=== PATIENT | female | born 1995 | race Two or more races ===

== ENCOUNTER 2025-02-26 12:07 | Inpatient (IN) | payer MEDICAID, OTHER ==
[~2025-02-26] VITALS: Ht 154.9 cm; Wt 112.4 kg
--- NOTE | 2025-02-26 12:27 | ED.PDOC ---
GI ASSESSMENT HPI Comments 29-year-old female presents with a chief complaint of abdominal pain with current and vaginal bleeding. Patient states that her LMP was January 22, 2025. Patient mentions that she saw her PMD and had a test done and it was positive. Patient mentions that she has been spotting vaginally. Patient denies clots or dark red blood. Patient reports that she took Ibuprofen for the pain, but it did not relieve her pain. Chief Complaint: Vaginal Bleed Time Seen by MD: 12:17 Reviewed Notes: Medications, Allergies Information Source: Patient Mode of Arrival: Ambulatory Timing: Days Duration: Since onset Prehospital treatment: None Quality: Cramping Vomitus: None Stool: Normal Severity: Moderate Recent: None Recent Hx of: Current Pain Location: Suprapubic Associated sign and symptoms: Abdominal Pain Past Medical History PAST MEDICAL HISTORY: Denies Surgical History: Denies all surgeries LOADER TECHNICIAN History: Denies all LOADER TECHNICIAN Hx Family History Family History: Reviewed,noncontributory to illness Social History Smoker: Cigarettes Alcohol: Denies ETOH Use Drugs: Denies Drug Use Lives In: Home Constitutional: denies: chills, diaphoresis, fatigue, fever, malaise, sweats, weakness, others EENTM: denies: blurred vision, double vision, ear bleeding, ear discharge, ear drainage, ear pain, ear ringing, eye pain, eye redness, hearing loss, mouth pain, mouth swelling, nasal discharge, nose bleeding, nose congestion, nose pain, photophobia, tearing, throat pain, throat swelling, voice changes, others Respiratory: denies: cough, hemoptysis, orthopnea, SOB at rest, shortness of breath, SOB with excertion, stridor, wheezing, others Cardiovascular: denies: chest pain, dizzy spells, diaphoresis, Dyspnea on exertion, edema, irregular heart beat, left arm pain, lightheadedness, palpitations, PND, syncope, others Gastrointestinal: reports: abdominal pain; denies: abdomen distended, blood streaked bowels, constipated, diarrhea, dysphagia, difficulty swallowing, hematemesis, melena, nausea, poor appetite, poor fluid intake, rectal bleeding, rectal pain, vomiting, others Genitourinary: reports: abnormal vagina bleeding, ; denies: burning, dyspareunia, dysuria, flank pain, frequency, hematuria, incontinence, pain, vagina discharge, urgency, others Neurological: denies: dizziness, fainting, headache, left sided numbness, left sided weakness, numbness, paresthesia, pre-existing deficit, right sided numbness, right sided weakness, seizure, speech problems, tingling, tremors, weakness, others Musculoskeletal: denies: back pain, gout, joint pain, joint swelling, muscle pain, muscle stiffness, neck pain, others Integumetry: denies: bruises, change in color, change in hair/nails, dryness, laceration, lesions, lumps, rash, wounds, others Allergic/Immunocompromised: denies: Difficulty Healing, Frequent Infections, Hives, Itching, others Hematologic/Lymphatic: denies: anemia, blood clots, easy bleeding, easy bruising, swollen glands, others Endocrine: denies: excessive hunger, excessive sweating, excessive thirst, excessive urination, flushing, intolerance to cold, intolerance to heat, unexplained weight gain, unexplained weight loss, others Psychiatric: denies: anxiety, bipolar disorder, depression, hopeless, panic disorder, schizophrenia, sleepless, suicidal, others All Other Systems: Reviewed and Negative Physical Exam General Appearance: Mild Distress, Normal, Obese HEENT: Normal ENT Inspection, PERRL/EOMI, Pharynx Normal, TMs Normal Neck: Full Range of Motion, Non-Tender, Normal, Normal Inspection Respiratory: Chest Non-Tender, Lungs Clear, No Accessory Muscle Use, No Respiratory Distress, Normal Breath Sounds Cardiovascular: No Edema, No JVD, No Murmur, No Gallop, Normal Peripheral Pulses, Regular Rate/Rhythm Breast Exam: Deferred Gastrointestinal: No Organomegaly, Non Tender, No Pulsatile Mass, Normal Bowel Sounds, Soft, Other (Mild cramping ) Genitalia: Other ( ), Deferred Pelvic: Deferred, Other (Vaginal cramping and bleeding) Rectal: Deferred Extremities: No calf tenderness, Normal capillary refill, Normal inspection, Normal range of motion, Non-tender, No pedal edema Musculoskeletal : Apperance: Normal Neurologic: Alert, pin ticket machine operator II-XII nml as Tested, No Motor Deficits, Normal Affect, Normal Mood, No Sensory Deficits Cerebellar Function: Normal Reflexes: Normal Skin: Dry, Normal Color, Warm Peripheral Pulses: 1+ carotid (R), 1+ carotid (L) Lymphatic: No Adenopathy Was a procedure done? Was a procedure done?: No GI differential Dx Differential Diagnosis: Threatened , Ectopic , UTI, X-Ray, Labs, Meds, VS Vital Signs Date Time Temp Pulse Resp B/P (MAP) Pulse Ox O2 Delivery O2 Flow Rate FiO2 02/26/25 12:09 98.0 113 16 146/95 98 98.0 Lab Test 02/26/25 12:33 Range/Units White Blood Count 11.5 H 4.4-10.8 10^3/uL Red Blood Count 4.45 4.0-5.20 10^6/uL Hemoglobin 12.2 12.2-16.2 g/dL Hematocrit 35.8 L 36.0-46.0 % Mean Corpuscular Volume 80.4 80.0-100.0 fL Mean Corpuscular Hemoglobin 27.4 L 28.0-32.0 pg Mean Corpuscular Hemoglobin Concent 34.1 32.0-36.0 g/dL Red Cell Distribution Width 16.8 H 11.8-14.3 % Platelet Count 327 140-450 10^3/uL Mean Platelet Volume 7.7 6.9-10.8 fL Neutrophils (%) (Auto) 77.4 37.0-80.0 % Lymphocytes (%) (Auto) 18.2 10.0-50.0 % Monocytes (%) (Auto) 3.2 0.0-12.0 % Eosinophils (%) (Auto) 0.6 0.0-7.0 % Basophils (%) (Auto) 0.6 0.0-2.0 % Neutrophils # (Auto) 8.9 H 1.6-8.6 10 ^3/uL Lymphocytes # (Auto) 2.1 0.4-5.4 10 ^3/uL Monocytes # (Auto) 0.4 0-1.3 10 ^3/uL Eosinophils # (Auto) 0.1 0-0.8 10 ^3/uL Basophils # (Auto) 0.1 0-0.2 10 ^3/uL Nucleated Red Blood Cells 0.0 % Prothrombin Time 10.5 9.3-11.8 sec Prothrombin Time INR 0.99 0.9-1.15 Activated Partial Thromboplast Time 25.9 24.5-34.5 SEC Beta HCG, Quantitative 6550.8 H 1.5-4.2 mIU/mL X-Ray, Labs, Meds, VS Comment Course in the emergency department eventful patient came in because of vaginal spotting and positive test Today the patient started having some cramps but [place] [address] with 77% neutrophils H&H 12 and 35.8 INR 0.99 Beta hCG 6550 The ultrasound shows ectopic Doctors shanelle took her to the surgery Time of 1ST Reevaluation: 12:47 Reevaluation 1ST: Unchanged Patient Education/Counseling: Diagnosis, Treatment Family Education/Counseling: No Family Present SEPSIS Sepsis Screen Date sepsis recognized/suspect: Feb 26, 2025 Time Sepsis recognized/suspect: 1209 Recent Procedure: No On Antibiotic Therapy: No Respiratory Rate >20: No Heart Rate >90: Yes Temp<36 C (96.8 F) or >38.3 C: No SBP <90 or MAP <65 mmHG: No New Acute Mental Status Change: No Is the patient on CPAP, BIPAP,: No Physician Orders Ob Ultrasound Comp Less 14wks (02/26/25 12:21) Urinalysis (02/26/25 12:21) Heplock Iv (02/26/25 12:21) Ob Trans Vaginal Us (02/26/25 ) Sodium Chloride 0.9% (02/26/25 15:00) Vital Signs Date Time Temp Pulse Resp B/P (MAP) Pulse Ox O2 Delivery O2 Flow Rate FiO2 02/26/25 12:09 98.0 113 16 146/95 98 98.0 Laboratory Tests Test 02/26/25 12:33 White Blood Count 11.5 10^3/uL (4.4-10.8) H Departure 1 Departure Time of Disposition: 15:55 Impression: Primary Impression: Vaginal bleeding affecting early Additional Impression: Ectopic Qualified Codes: O00.109 - Unspecified tubal without intrauterine Disposition: ADMITTED INPATIENT Admit to: Med Surg Condition: Serious Critical Care Note Critical Care Time?: No Stability Stability form required: Yes Heart Score Heart Score: Heart Score Response (Comments) Value History N/A 0 EKG N/A 0 Age <45 0 Risk Factors No known risk factors 0 Troponin N/A 0 Total 0 I personally scribed for DANIEL BRYANT MD ([email or web address]) on 02/26/25 at 12:26. Electronically submitted by Johnathon Reis ([email or web address]). DANIEL BRYANT MD Feb 26, 2025 12:26
[2025-02-26 12:52] LABS: Hematocrit 35.8 % (36.0-46.0); Hemoglobin 12.2 g/dL (12.2-16.2); Mean Corpuscular Hemoglobin 27.4 pg (28.0-32.0); Mean Corpuscular Volume 80.4 fL (80.0-100.0); Nucleated Red Blood Cells % 0.0 %
[2025-02-26] MEDS: SODIUM CHLORIDE 0.9% 500 ML IV ONE (15:00)
--- NOTE | 2025-02-26 15:23 | DVH ---
CLINICAL HISTORY: vaginal bleeding and cramps COMPARISON: None TECHNIQUE: Transvaginal and transabdominal grayscale sonographic imaging of the uterus and ovaries wa s performed, assisted by color Doppler technique. Duplex Doppler ultrasound of both ovaries was also performed. FINDINGS: The uterus measures 9.8 x 4.6 x 5.1 cm. There is mildly heterogeneous echogenicity. Endomet rial thickness measures 1.9 cm, thickened and heterogeneous. Focal hypoechoic area within the endomet rium measures up to 0.6 x 1.1 x 0.4 cm. No intrauterine demonstrated. There is a small amou nt of free fluid in the cul-de-sac. There is free fluid also seen in the right upper quadrant. Right ovary measures 3.0 x 2.3 x 2.2 cm. Arterial and venous blood flow demonstrated. Suspected ectop ic in the right adnexal region with gestational sac, yolk sac, and pole identified. C rown-rump length measures 0.26 cm, corresponding to an estimated gestational age of 5 weeks 6 days. N o heart tones demonstrated. Heterogeneous area measuring up to 8.8 x 5.1 x 5.5 cm in the right adnexal region, suspected hemorrhage in the setting of ectopic . Left ovary measures 3.3 x 2.2 x 3.0 cm. Arterial and venous blood flow demonstrated. Cyst in the left ovary measures up to 2.2 cm. IMPRESSION: 1. Suspected ectopic in the right adnexal region as detailed above. 2. Heterogeneous area in the right adnexal region measuring up to 8.8 x 5.1 x 5.5 cm, probable hemorr kusum in the setting of ectopic . 3. Thickened, heterogeneous endometrium with hypoechoic area within the endometrium, possibly due to blood products. No intrauterine . 4. Free fluid in the cul-de-sac and free fluid in the right upper quadrant. 5. Additional findings as described above. Critical findings Critical Result: Suspected ectopic Findings reported to Dr. Cr by the children's lunchroom supervisor at the time of the examination. ..
--- NOTE | 2025-02-26 15:27 | DVHHP ---
ADMIT DATE: 02/26/2025 CHIEF COMPLAINT: Abdominal pain, cramping, vaginal bleeding. HISTORY OF PRESENT ILLNESS: The patient is a 29-year-old 4, para 3, admitted for ruptured ectopic . Last menstrual period was 01/22/2025. Ultrasound revealed free fluid. No IUP. Beta-hCG of 6550. Adnexal mass on the right side noted. The patient was sent to ER by Dr. Liu. PAST MEDICAL HISTORY: None. PAST SURGICAL HISTORY: Abscess of right thigh removed. SOCIAL HISTORY: None. OBSTETRIC AND GYNECOLOGIC HISTORY: Three normal vaginal deliveries. ALLERGIES: PENICILLIN AND VANCOMYCIN. REVIEW OF SYSTEMS: Consistent with HPI. PHYSICAL EXAMINATION: VITAL SIGNS: Stable. HEENT: Within normal limits. CARDIOVASCULAR: Regular rate and rhythm. LUNGS: Clear to auscultation. BREASTS: Symmetrical. No masses. ABDOMEN: Obese, right lower quadrant tenderness, rebound. PELVIC: Deferred at this point, has some vaginal bleeding. EXTREMITIES: No clubbing, cyanosis or edema. IMPRESSION: Ruptured ectopic , right adnexa. PLAN: Exploratory laparotomy, possible removal of affected tube or ovary or both. Possible blood transfusion. Informed consent was obtained. Risks, complications, possibility of infertility, complications such as infection, bleeding discussed with the patient. Options reviewed. All questions answered. The patient fully understands. She wishes to proceed with planned procedure. DO TEDDY Nevarez/LEXIS/CHRIS TID: [id number] RECEIPT: [id number]
[2025-02-26 15:47] LABS: INR 0.99 (0.9-1.15); Partial Thromboplastin Time 25.9 SEC (24.5-34.5); Prothrombin Time 10.5 sec (9.3-11.8)
[2025-02-26] MEDS: SUCCINYLCHOLINE CHLORIDE 20 MG/ML 10ML VIAL IV ONE (15:49)
[2025-02-26] MEDS: ceFAZolin 2 GM/D5W50ml 50 ML IV ONE (16:00)
[2025-02-26] MEDS ORDERED: fentaNYL CITRATE 100 MCG/2 ML VL ONE (16:04)
[2025-02-26] MEDS ORDERED: MIDAZOLAM HCL 2MG/2ML 2ml VIAL (1mg/ml) ONE (16:04)
[2025-02-26] MEDS ORDERED: HYDROmorphone HCL 2 MG/ML VL/or syr ONE (16:04)
[2025-02-26] MEDS ORDERED: PROPOFOL 10 MG/ML 20 ML IV ONE (16:13)
[2025-02-26] MEDS ORDERED: ONDANSETRON HCL 4 MG/2 ML VIAL ONE (16:13)
[2025-02-26] MEDS: BUPIVACAINE 0.5% P/F INJ 10 ML VIAL ONE (16:17)
[2025-02-26] MEDS: LIDOCAINE W/ EPINEPHRINE 1% 20ML VIAL ONE (16:17)
[2025-02-26] MEDS ORDERED: SUGAMMADEX 200mg/2ml Vial (100MG/ML) IV ONE (16:45)
--- NOTE | 2025-02-26 16:56 | DVHOP2 ---
Operative Report DATE OF OPERATION: 02/26/25 PREOPERATIVE DIAGNOSES: RIGHT Ruptured ectopic ,HYDROSALPINX OF LEFT TUBE,MORBID OBESITY,DESIRES REMOVAL OF LEFT TUBE HYDROSALPINX POSTOPERATIVE DIAGNOSES: SAME ,HEMOPERITONEUM,MORBID OBESITY,SAME SURGEON: Luiza Cr D.O./TRACY ANESTHESIOLOGIST: NAYANA TYPE OF ANESTHESIA : General CONSENT: The patient was informed of the risks and benefits of the procedure. The patient was informed of the risks and benefits of the procedure. These include but are not limited to , complications of anesthesia, postoperative infection, incomplete relief of symptoms, recurrence of symptoms, damage to blood vessels, nerves and tendons, deep venous thrombosis, pulmonary embolism and possible need for repeat surgery in the future. FINDINGS: 1 L of hemoperitoneum, right ectopic ampullary leaking , right ovary grossly normal appearing, uterus 8 weeks size, left ovary grossly normal.,LEFT TUBE HYDROSALPINX PROCEDURES: Exploratory laparotomy,right salpingectomy,evacuation of clots. PROCEDURE IN DETAIL: The patient was taken to the operating room placed in supine position. General anesthesia was performed without difficulty. A low Pfannenstiel incision was made with scalpel down to the rectus fascia. The rectus fascia was nicked in the midline and carried laterally. The rectus fascia was dissected superiorly and inferiorly. The rectus muscles were in the midline. Peritoneum was identified and entered with sharp dissection . An O'Wilman-O'Cage retractor with moist laps were placed into the abdomen and bowel was packed at this point. At approximately 1000 ml of hemoperitoneum was evacuated. The ectopic was identified and using a SHERWIN stapler the right tube was excised. Clips were applied to the pedicular site. Copious irrigation was performed all blood clots were removed. The left ovary wAS grossly intact.THE LEFT TUBE WAS DAMAGED HYDROSALPINX WHICH PT WANTED REMOVED UNDERSTANDING NO FUTURE FERTILITY. The right ovary was grossly intact appearing. Uterus was 8 weeks in size. Surgicel was applied to to the right tubal site. All laparotomy sponges were removed from the abdomen and pelvis. No bleeding was noted good hemostasis was noted. The O'Wilman O'Cage retractor was removed. Fascia was closed using 0 Prolene x2. Skin was closed using staplers. Patient was extubated successfully. She was taken to recovery room in stable condition. Specimen was sent to pathology and it was taken out of the room. ESTIMATED BLOOD LOSS: EBL was 1 L of hemoperitoneum 200 ml intraoperative blood loss. Visit Coding OBGYN Date of Service: Feb 26, 2025 Billing Provider: LUIZA CR DO BRIDGE MANAGER Common Visit Codes: [id number] INP/OBS CARE(HIGH) BRIDGE MANAGER Procedure Codes: 20178-JED.SURG:W/FULG OF OVIDUCTS LUIZA CR DO Feb 26, 2025 16:56
[2025-02-26] MEDS ORDERED: CIPR-173 PO (16:58)
[2025-02-26] MEDS ORDERED: DOCU-94 PO (16:58)
[2025-02-26] MEDS ORDERED: HYDR-4072 PO (16:58)
[2025-02-26] MEDS ORDERED: IBUP-1456 PO (16:58)
[2025-02-26] MEDS ORDERED: MORPHINE SULFATE 4 MG/ML SYR/VIAL IV PRN (17:00)
[2025-02-26] MEDS ORDERED: hydrALAZINE HCL 20 MG/ML VL IV PRN (17:00)
[2025-02-26] MEDS ORDERED: MIDAZOLAM HCL 2MG/2ML 2ml VIAL (1mg/ml) IV PRN (17:00)
--- NOTE | 2025-02-26 17:02 | POSTOP ---
Post-Operative Note Post-Operative Note Preop Diagnosis right ruptured ectopic preg,hemoperitoneum,morbid obesity,left hydrosalpinx Postop Diagnosis: same Operation performed expl lap,bilat salpingectomy,removal of hemoperitenum Specimen both tubes Anesthesia: General Anesthesiologist: jenn Blood Loss(fluid mgmt) 1 l of hemoperitonum and 200ml ebl Surgeon Kobe Cr Floor Care Technician azael Implant clips Complications & Mgmt none Date 02/26/25 Time 16:59 Visit Coding OBGYN Date of Service: Feb 26, 2025 Billing Provider: KOBE CR DO TABLE GAMES DEALER Common Visit Codes: [id number] INP/OBS CARE (HIGH) TABLE GAMES DEALER Procedure Codes: 65406-NQ ECTOP PREG TUBAL/OVARIAN KOBE CR DO Feb 26, 2025 17:01
[2025-02-26] MEDS ORDERED: RHO (D) IMMUNE GLOBULIN 300 MCG INJ IM PRN (17:15)
[2025-02-26 17:20] VITALS: PULSE 88; RESP 15; O2SAT 95
[2025-02-26] MEDS: HYDROmorphone HCL 2 MG/ML VL/or syr IV PRN ×2 (17:26→21:33)
[2025-02-26] MEDS: HYDROmorphone HCL 2 MG/ML VL/or syr ONE (17:34)
[2025-02-26 18:00] VITALS: PULSE 73; RESP 24; O2SAT 92
[2025-02-26] MEDS: ONDANSETRON HCL 4 MG/2 ML VIAL IV ONE (18:50)
[2025-02-26] MEDS: LACTATED RINGER'S 1,000 ML IV SCH (19:55)
[2025-02-26 20:07] VITALS: BP 115/72; PULSE 78; RESP 18; TEMP 98.4; O2SAT 95
[2025-02-26 21:00] VITALS: BP 115/72; PULSE 78; RESP 18; TEMP 98.4; O2SAT 95
[2025-02-26] MEDS: CLINDAMYCIN 900MG IV 50 ML IV SCH (21:33)
[2025-02-26 22:26] LABS: Hematocrit 31.4 % (36.0-46.0); Hemoglobin 10.3 g/dL (12.2-16.2); Mean Corpuscular Volume 80.1 fL (80.0-100.0)
[2025-02-26 22:28] LABS: Mean Corpuscular Hemoglobin 26.4 pg (28.0-32.0)
[2025-02-26 22:46] LABS: Total Cells Counted 100.0 (100)
[2025-02-26 22:47] LABS: Anisocytosis Slight
[2025-02-27] VITALS (7 sets, daily range): BP systolic 109–129; BP diastolic 62–88; PULSE 75–97; RESP 16–19; TEMP 97.5–98.4; O2SAT 6–99
[2025-02-27] MEDS: ONDANSETRON HCL 4 MG/2 ML VIAL IV PRN (05:32)
[2025-02-27 06:34] LABS: Hematocrit 28.1 % (36.0-46.0); Hemoglobin 9.5 g/dL (12.2-16.2); Mean Corpuscular Hemoglobin 27.2 pg (28.0-32.0); Mean Corpuscular Volume 80.5 fL (80.0-100.0); Nucleated Red Blood Cells % 0.0 %
[2025-02-27] MEDS ORDERED: RHO (D) IMMUNE GLOBULIN 300 MCG INJ IM PRN (07:15)
[2025-02-27] MEDS: DOCUSATE SOD 100 MG CAP PO PRN (10:23)
[2025-02-27] MEDS: HYDROcodone-ACET 10/325MG TAB PO PRN (10:24)
[2025-02-27] MEDS: SIMETHICONE 80 MG CHEWABLE TABLET PO SCH (12:11)
--- NOTE | 2025-02-27 12:24 | DVHPN2 ---
Chief Complaints Patient reports: No new complaints Nursing reports: No new complaints Objective Vitals Vital Signs Date Time Temp Pulse Resp B/P (MAP) Pulse Ox O2 Delivery O2 Flow Rate FiO2 02/27/25 08:59 98.1 83 18 129/66 (87) 6 98.1 02/26/25 20:00 Room Air* 0 21 Medications Current Medications Medications (Trade) Dose Ordered Sig/Reginaldo Route PRN Reason Start Time Stop Time Status Last Admin Acetaminophen/ Hydrocodone Bitart ([place] 10/325MG Tab) 1 tab Q4HP PRN PO SEVERE PAIN (7-10 PAIN SCALE) 02/27/25 07:15 02/27/25 10:24 Clindamycin Phosphate 50 ml @ 50 mls/hr Q8H IV 02/26/25 17:15 02/27/25 10:28 Dimethicone (Mylicon Tab) 80 mg QID PO 02/27/25 12:00 02/27/25 12:11 Docusate Sodium (Colace Capsule) 100 mg Q12HP PRN PO FOR CONSTIPATION 02/27/25 07:15 02/27/25 10:23 Lactated Ringer's 1,000 ml @ 150 mls/hr Q6H40M IV 02/26/25 17:15 02/26/25 23:54 Ondansetron HCl (Zofran) 4 mg Q4HP PRN IV NAUSEA / VOMITING 02/26/25 17:15 02/27/25 05:32 Rho Immune Globulin (Rhogam) 300 mcg ONCE PRN IM If Rh negative 02/27/25 07:15 General: Normal Lungs: Normal Cardiovascular: Normal Abdominal: Soft Extremities: Normal Studies Laboratory Tests 02/27/25 05:11 Ass/Plan Assessment s/p expl lap,bilat salpingectomy Plan supportive care Visit Coding OBGYN Date of Service: Feb 27, 2025 Billing Provider: KOBE CUMMINS DO PAPER CONE MACHINE TENDER Common Visit Codes: [id number] INP/OBS CARE (HIGH) KOBE CUMMINS DO Feb 27, 2025 12:24
[2025-02-28] VITALS (7 sets, daily range): BP systolic 110–138; BP diastolic 46–89; PULSE 60–97; RESP 17–20; TEMP 97.5–98.8; O2SAT 93–98
[2025-02-28 06:15] LABS: Hematocrit 25.6 % (36.0-46.0); Hemoglobin 8.8 g/dL (12.2-16.2); Mean Corpuscular Hemoglobin 27.4 pg (28.0-32.0); Mean Corpuscular Volume 80.3 fL (80.0-100.0); Nucleated Red Blood Cells % 0.0 %
[2025-02-28 06:33] LABS: Alanine Aminotransferase 23 U/L (7-40); Albumin 3.7 g/dL (3.2-4.8); Anion Gap 8 (5-15); BUN/Creatinine Ratio 10.1 (10.0-20.0); Bilirubin, Total 0.6 mg/dL (0.2-1.0); Carbon Dioxide 25 mmol/L (20-31); Glucose 83 mg/dL (74-106); Sodium 141 mmol/L (136-145); Total Protein 6.0 g/dL (5.7-8.2)
[2025-02-28 06:52] LABS: Alkaline Phosphatase 42 U/L (46-116); Blood Urea Nitrogen 7 mg/dL (9-23); Calcium 8.0 mg/dL (8.7-10.4); Chloride 108 mmol/L (98-107); Potassium 3.4 mmol/L (3.5-5.1)
--- NOTE | 2025-02-28 07:56 | DVHPN2 ---
Chief Complaints Patient reports: No new complaints Nursing reports: No new complaints Objective Vitals Vital Signs Date Time Temp Pulse Resp B/P (MAP) Pulse Ox O2 Delivery O2 Flow Rate FiO2 02/28/25 04:58 98.1 75 20 118/46 (70) 97 98.1 02/27/25 20:00 Room Air* 0 21 Medications Current Medications Medications (Trade) Dose Ordered Sig/Reginaldo Route PRN Reason Start Time Stop Time Status Last Admin Dimethicone (Mylicon Tab) 80 mg QID PO 02/27/25 12:00 02/28/25 05:26 General: Normal Lungs: Normal Cardiovascular: Normal Abdominal: Soft Extremities: Normal Studies Laboratory Tests 02/28/25 05:39 Test 02/28/25 05:39 Range/Units Serum Glucose 83 74-106 mg/dL Ass/Plan Assessment s/p expl lap,bilat salpingectomy Plan AMBULATE Visit Coding OBGYN Date of Service: Feb 28, 2025 Billing Provider: KOBE CUMMINS DO PHARMACY TECHNICIAN PER DIEM Common Visit Codes: [id number] INP/OBS CARE(LOW) KOBE CUMMINS DO Feb 28, 2025 07:56
[2025-02-28] MEDS: POLYETHYLENE GLYCOL 17 GM PWDR PO ONE (09:07)
[2025-02-28 10:18] LABS: Hepatitis B Surface Antigen Negative (Negative)
[2025-02-28 10:21] LABS: Hepatitis C Antibody Negative (Negative)
[2025-02-28] MEDS: LACTULOSE 20Gm/30ML SOLN PO ONE (14:07)
[2025-02-28] MEDS: POTASSIUM EFFERVESENT TAB 25 MEQ PO ONE (14:07)
[2025-02-28] MEDS: SENNA 8.6 MG TAB PO ONE (14:08)
[2025-03-01 01:00] VITALS: BP 121/76; PULSE 70; RESP 18; TEMP 98.1; O2SAT 98
[2025-03-01 09:00] VITALS: BP 109/66; PULSE 77; RESP 18; TEMP 98.6; O2SAT 98
--- NOTE | 2025-03-01 09:26 | DVHPN2 ---
Chief Complaints Patient reports: No new complaints, Feels better Nursing reports: No new complaints Objective Vitals Vital Signs Date Time Temp Pulse Resp B/P (MAP) Pulse Ox O2 Delivery O2 Flow Rate FiO2 03/01/25 01:00 98.1 70 18 121/76 (91) 98 98.1 02/28/25 20:00 Room Air* 0 21 General: Normal Lungs: Normal Cardiovascular: Normal Abdominal: Soft Extremities: Normal Studies Laboratory Tests 02/28/25 05:39 Test 02/28/25 05:39 Range/Units Serum Glucose 83 74-106 mg/dL Ass/Plan Assessment s/p expl lap,bilat salpingectomystable Plan dc home fu this mon Visit Coding OBGYN Date of Service: Mar 01, 2025 Billing Provider: KOBE CUMMINS DO RAILROAD SURVEYOR Common Visit Codes: [id number] INP/OBS CARE(HIGH), 60950-XLG/OBS DISCH DAY >30MIN KOBE CUMMINS DO Mar 01, 2025 09:26
--- NOTE | 2025-03-01 09:28 | DVHDS2 ---
Physician Discharge Progress N Final Diagnosis: s/p bilat salpingectomy,hemoperitenum and ruptured ectopic preg,morbid obesity Operations or Procedures: Operations or Procedures expl lap,bilat salpingectomy,removal of hemoperitenum Condition on Discharge: Good Disposition: Home Discharge Instructions: Diet: Regular Activity: Light activity Medications: zofran,norco Follow Up Care: Specialist: sammy mon 9:30 am Discharge Statement: "Patient was advised to return to the ER or call 911 if any headaches, dizziness, shortness of breath, chest pain, abdominal pain, bleeding, fevers, or worsening of medical condition. Patient was counseled about treatment plan, medications, possible side effects, patientverbalized understanding. All questions were answered to the best of my ability. This discharge took greater then 30 minutes in planning, reviewing documentation, counseling the patient, and discussing with other team members." Visit Coding OBGYN Date of Service: Mar 01, 2025 Billing Provider: KOBE CUMMINS DO APPLICATION RELEASE MANAGER Common Visit Codes: [id number] INP/OBS CARE(HIGH), 44563-RFJ/OBS DISCH DAY >30MIN APPLICATION RELEASE MANAGER Procedure Codes: [id number] ECTOP PREG TUBAL/OVARIAN KOBE CUMMINS DO Mar 01, 2025 09:28
[2025-03-01 11:24] VITALS: TEMP 36.7
[2025-03-01 12:30] VITALS: BP 120/94; PULSE 79; RESP 19; TEMP 97.9; O2SAT 97
== END 2025-03-01 12:51 | disposition home or self-care (01) | DRG 547 ==
LOC: ER 12:07 → CENTRAL 17:09
PROVIDERS: ADMIT Obstetrics & Gynecology; ATTEND Obstetrics & Gynecology
PROC: 0UB54ZZ Excision of Right Fallopian Tube, Percutaneous Endoscopic Approach (ICD-10-PCS; 2025-02-26)
PROC: 0UT5FZZ Resection of Right Fallopian Tube, Via Natural or Artificial Opening With Percutaneous Endoscopic Assistance (ICD-10-PCS; principal; 2025-02-26 15:59)
DX: O00.101 Right tubal pregnancy without intrauterine pregnancy (principal); K66.1 Hemoperitoneum; Z68.42 Body mass index [BMI] 45.0-49.9, adult; F17.210 Nicotine dependence, cigarettes, uncomplicated; E66.01 Morbid (severe) obesity due to excess calories
CPT/HCPCS: 36415; 76801; 76817; 80053; 84702; 85007; 85025; 85027; 85610; 85730; 86803; 86850; 86900; 86901; 87340; 96374; 96375; G0378; J0330; J1100; J2250; J2405; J2704; J3490

== ENCOUNTER 2025-03-17 09:27 | Outpatient (CLI) | payer MEDICAID ==
[~2025-03-17 09:27] MED LIST: CIPR-173 PO; DOCU-94 PO; HYDR-4072 PO; IBUP-1456 PO
[2025-03-17 09:52] LABS: Hematocrit 34.4 % (36.0-46.0); Hemoglobin 11.5 g/dL (12.2-16.2); Mean Corpuscular Hemoglobin 26.3 pg (28.0-32.0); Mean Corpuscular Volume 78.7 fL (80.0-100.0); Nucleated Red Blood Cells % 0.0 %
[2025-03-17 10:02] LABS: Urine Protein, UAD Negative (Negative)
[2025-03-17 10:18] LABS: Alanine Aminotransferase 20 U/L (7-40); Albumin 4.7 g/dL (3.2-4.8); Alkaline Phosphatase 71 U/L (46-116); Anion Gap 9 (5-15); BUN/Creatinine Ratio 13.2 (10.0-20.0); Bilirubin, Total 0.4 mg/dL (0.2-1.0); Blood Urea Nitrogen 10 mg/dL (9-23); Calcium 9.1 mg/dL (8.7-10.4); Carbon Dioxide 25 mmol/L (20-31); Cholesterol 113 mg/dL (< 200); Glucose 95 mg/dL (74-106); HDL Cholesterol 45 mg/dL (40-59); Potassium 4.3 mmol/L (3.5-5.1); Sodium 141 mmol/L (136-145); Total Protein 7.5 g/dL (5.7-8.2); Triglycerides 57 mg/dL (< 150)
[2025-03-17 10:21] LABS: Chloride 107 mmol/L (98-107)
[2025-03-19 02:07] LABS: Chlamydia Trachomatis, NAA Negative (Negative); Neisseria gonorrhoeae, NAA Negative (Negative)
== END 2025-03-17 17:00 | disposition home or self-care (01) ==
LOC: LAB 09:27
PROVIDERS: ATTEND Internal Medicine
DX: E55.9 Vitamin D deficiency, unspecified (principal); Z13.1 Encounter for screening for diabetes mellitus; Z00.01 Encounter for general adult medical examination with abnormal findings
CPT/HCPCS: 36415; 80053; 80061; 81001; 82306; 83036; 84439; 84443; 85025